=== PATIENT | male | born 1985 | race Caucasian/White ===

== ENCOUNTER 2016-10-18 09:20 | Emergency (ER) | payer BC ==
[~2016-10-18] VITALS: Ht 195.6 cm; Wt 115.4 kg
[2016-10-18 09:25] VITALS: TEMP 36.7; Ht 195.6 cm; Wt 115.4 kg
[2016-10-18] MEDS ORDERED: IBUPROFEN 600 MG TAB PO STA (09:44)
[2016-10-18] MEDS ORDERED: TYLOTC500 PO (09:48)
[2016-10-18] MEDS ORDERED: MULT-506 PO (09:48)
--- NOTE | 2016-10-18 10:14 | DIAGNOSTIC IMAGING REPORT ---
RIGHT FOOT MIN 3 VIEWS ROUTINE HISTORY: 31 years-old Male acute right lateral foot pain without reported trauma. COMPARISON: None available. TECHNIQUE: 3 views of the right foot. FINDINGS: Bone mineralization is within normal limits. There is mild dorsal midfoot spurring. No acute fracture, dislocation or significant degenerative changes. There is mild soft tissue prominence lateral to the fifth metatarsal. No stress fracture. Negative for opaque foreign body. IMPRESSION: Mild soft tissue swelling lateral to the fifth metatarsal without acute bony abnormality. The above report was generated using voice recognition software. It may contain grammatical, syntax or spelling errors. Electronically signed by: Tereso Feliz M.D. 10/18/2016 10:13 AM Dictated Date/Time: 10/18/2016 10:11 AM
[2016-10-18 10:27] VITALS: BP 141/96; PULSE 97; O2SAT 96
[2016-10-18] MEDS ORDERED: IBUP-1451 PO (10:55)
--- NOTE | 2016-10-18 10:57 | EMERGENCY ROOM VISIT NOTE ---
ED Visit Note First contact with patient: 09:36 CHIEF COMPLAINT: right foot pain HISTORY OF PRESENT ILLNESS: This 31-year-old male patient presents to the emergency department, ambulatory, with his , complaining of swelling and pain in the right foot at rest and worse with weight bearing. The patient states the pain is on the outside of the foot, worse with weightbearing and bending the toes. The patient states the pain began approximately 2 days ago. 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 The patient denies injury. The patient rates the pain as a tightening sensation and 1/10 at rest, but 8/10 with weightbearing. The patient has had no relief of the pain with the use of Tylenol once yesterday. The patient has not taken any anti-inflammatory medications or used any ice or heat. The patient is able to walk. No numbness or weakness. No ankle pain. There are no lacerations of the foot. The patient is able to move all of their toes and their ankle without pain in those joints. No previous fracture to this foot. REVIEW OF SYSTEMS: GENERAL: A 6 system review of systems was completed with positives and pertinent negatives in the HPI. ALLERGIES: Sulfa MEDICATIONS: Multivitamin PMH: None SOCIAL HISTORY: The patient lives locally with his family. He denies drug, alcohol, tobacco use. PHYSICAL EXAM: Vital Signs: Reviewed Nurse's notes, vital signs stable. GENERAL : This is a 31-year-old male, in no acute distress, well-developed, well- nourished. MUSCULOSKELATAL: There is no visual deformity of the right foot. There is no erythema or ecchymosis. There is no warmth. There is tenderness and swelling over the dorsal aspect of the right foot. There is no tenderness over the lateral or medial malleolus. No tenderness of the tib/fib. The range of motion of the foot and toes is very mildly limited secondary to pain. There is no tenderness over the plantar fascia. The skin is intact and there are no lacerations or puncture wounds. Dorsalis pedis pulse 2+. Capillary refill less than 2 seconds. RADIOLOGY: X-ray right foot: FINDINGS: Bone mineralization is within normal limits. There is mild dorsal midfoot spurring. No acute fracture, dislocation or significant degenerative changes. There is mild soft tissue prominence lateral to the fifth metatarsal. No stress fracture. Negative for opaque foreign body. IMPRESSION: Mild soft tissue swelling lateral to the fifth metatarsal without acute bony abnormality. EMERGENCY DEPARTMENT COURSE: I examined the patient. An X-ray of the right foot was reviewed by myself and radiologist and reveals no acute fracture, but there is soft tissue swelling. I offered crutches or a postop shoe to the patient, but he declines. The patient was given 600 mg ibuprofen, and did note slight improvement in his symptoms. The patient was discharged home in good condition. DIFFERENTIAL DIAGNOSIS: Tendinitis, sprain, strain, contusion, fracture, arthritis, gout, cellulitis, malignancy, and others DIAGNOSIS: Foot pain TREATMENT: ORTHOPEDIC INSTRUCTIONS: Ibuprofen(Motrin, Advil) may be used for fever or pain. Use 800mg every 8 hours as needed. Take with food. Avoid using more than 2400mg in a 24 hour period. Do not use 2400mg per day for more than three consecutive days without physician direction. Prolonged inappropriate use can lead to stomach upset or ulcers. (AND/OR) Acetaminophen(Tylenol) may be used for fever or pain. Use 1000mg every six hours as needed. Avoid using more than 3000mg in a 24 hour period. Ice compresses for 20 minutes at a time four times daily for 2-3 days. Rest and elevate your injury. Return to the ER immediately for any numbness, tingling, severe pain, extreme swelling in the extremity or as needed. Follow-up with your primary care physician in 2 to 3 days for a recheck of your current condition. Follow-up with orthopedics if no improvement in 1-2 weeks. Current/Historical Medications Scheduled Acetaminophen (Tylenol), 1,000 MG PO UD Multivitamin (Multivitamin), 1 TAB PO HS Scheduled PRN Ibuprofen Tab (Motrin), 800 MG PO Q8H PRN for Pain Allergies Coded Allergies: Sulfa Antibiotics (Unverified Allergy, Intermediate, RASH, 10/18/16) Vital Signs Date Time Temp Pulse Resp B/P (MAP) Pulse Ox O2 Delivery O2 Flow Rate FiO2 10/18/16 10:27 97 18 141/96 96 Room Air 10/18/16 09:25 36.7 97 18 147/106 96 Room Air Medications Administered Medications (Trade) Dose Ordered Sig/Harshad Route Start Time Stop Time Status Last Admin Dose Admin Ibuprofen (Motrin Tab) 600 mg NOW STAT PO 10/18/16 09:44 10/18/16 09:45 DC 10/18/16 10:26 600 MG Departure Information Impression Primary Impression: Foot pain Dispostion Home / Self-Care Condition GOOD Prescriptions Ibuprofen Tab (MOTRIN) 800 Mg Tab 800 MG PO Q8H Y for Pain, #100 TAB For Initial Treatment Prov: Patricia De Souza, CHEPE 10/18/16 Referrals Angus Barakat M.D. (PCP) Angus Sears M.D. Patient Instructions ED Sprain Foot, [facility], [facility] Additional Instructions ORTHOPEDIC INSTRUCTIONS: Ibuprofen(Motrin, Advil) may be used for fever or pain. Use 800mg every 8 hours as needed. Take with food. Avoid using more than 2400mg in a 24 hour period. Do not use 2400mg per day for more than three consecutive days without physician direction. Prolonged inappropriate use can lead to stomach upset or ulcers. (AND/OR) Acetaminophen(Tylenol) may be used for fever or pain. Use 1000mg every six hours as needed. Avoid using more than 3000mg in a 24 hour period. Ice compresses for 20 minutes at a time four times daily for 2-3 days. Rest and elevate your injury. Return to the ER immediately for any numbness, tingling, severe pain, extreme swelling in the extremity or as needed. Follow-up with your primary care physician in 2 to 3 days for a recheck of your current condition. Follow-up with orthopedics if no improvement in 1-2 weeks. Problem Qualifiers Primary Impression: Foot pain Laterality: right Qualified Codes: M79.671 - Pain in right foot
== END 2016-10-18 11:07 | disposition home or self-care (01) ==
LOC: C.EDB 09:21 → C.EDA 11:07
DX: M79.671 Pain in right foot (principal)